=== PATIENT | female | born 2000 | race African-American/Black ===

== ENCOUNTER 2024-10-02 08:54 | Emergency (ER) | payer BC ==
[~2024-10-02] VITALS: Ht 160 cm; Wt 59.9 kg
[~2024-10-02 08:54] MED LIST: FAMOTIDINE40 MG PO; ONDANSETRON ODT4 MG PO
[2024-10-02 08:58] VITALS: PULSE 118; RESP 18
[2024-10-02] MEDS: IBUPROFEN 600 MG TAB PO STA (09:32)
[2024-10-02] MEDS: ONDANSETRON HCL 4 MG ORAL DISINTEGRATING TAB PO STA (09:32)
[2024-10-02] MEDS: HYDROCODONE/APAP 5MG-325MG TAB PO STA (09:33)
[2024-10-02] MEDS: SODIUM CHLORIDE 0.9% 1000ML 1,000 ML IV ONE (10:03)
[2024-10-02] MEDS ORDERED: TAMIFLU75 MG PO (10:04)
[2024-10-02] MEDS ORDERED: ONDANSETRON ODT4 MG PO (10:06)
[2024-10-02 10:45] VITALS: TEMP 100.9
[2024-10-02 11:20] VITALS: BP 113/76; PULSE 90; RESP 18; TEMP 99.8; O2SAT 99
== END 2024-10-02 11:22 | disposition home or self-care (01) ==
LOC: FSED 09:09
DX: R50.9 Fever, unspecified (principal); J10.1 Influenza due to other identified influenza virus with other respiratory manifestations; R05.9 Cough, unspecified; R11.0 Nausea
CPT/HCPCS: 99284; J7030; Q0162